=== PATIENT | female | born 1975 | race Two or more races ===

== ENCOUNTER → 2017-08-01 | Day surgery (SDC) | payer BC ==
[~2017-08-01] MED LIST: ARMOUR; ARTIFICIAL TEARS (OPTH) 15 ML BTL OU PRN; COLACE100 MG PO; DORYX150 MG PO; GLUCAGON FOR INJ 1 MG VIAL ONE; HEMOCYTE PLUS1 EACH PO; HYOSCYAMINE SULFATE 0.5 MG/ML AMP ONE; LEVAQUIN500 MG PO; LEVOTHYROXINE25 MCG PO; METFORMIN HCL500 MG PO; MIDAZOLAM HCL 2 MG/2 ML VIAL ONE; MULTIVITAMIN; PROPOFOL IV EMULSION 10 MG/ML 50 ML VIAL ONE; TYLENOL WITH C1 EACH PO; Z.0.LEVOXYL25 MCG PO; Z.0.SPIRONOLACTONE50 PO; ZOVIA PO
--- NOTE | 2017-08-01 15:23 | Operative Report ---
DATE OF PROCEDURE: August 01, 2017 COLONOSCOPY WITH POLYPECTOMY NOTE REFERRING PHYSICIAN: Dr. Christian Kaur. INDICATION FOR PROCEDURE: Colorectal cancer screening, constipation, iron deficiency anemia. MEDICATIONS: Patient was done under MAC. Please see anesthesiologist's note. PROCEDURE: With the patient in left lateral decubitus position, a flexible fiberoptic Olympus colonoscope was inserted into the rectum with ease and advanced all the way to the cecum. There was some retained fecal material in the colon, but visualization was fair. Mucosa overlying the cecum appeared to be within normal limits. Two polyps were hot biopsied from the ascending colon. The transverse colon appeared to be within normal limits. One polyp was snared from the descending colon and one polyp was hot biopsied from the sigmoid. There were some minimal scattered diverticular disease. The scope was then retroflexed into the distal rectum and moderate-sized internal hemorrhoids were noted, none of which was actively bleeding. The scope was then straightened out. The rectosigmoid area as well as the distal rectal area were decompressed. The scope was subsequently withdrawn. Patient tolerated the procedure well. IMPRESSION 1. Ascending colon polyps, hot biopsied times 2. 2. Descending colon polyp, snared times 1. 3. Diverticulosis, minimal. 4. Sigmoid colon polyp, hot biopsied. 5. Internal hemorrhoids, none actively bleeding. PLAN: Follow up histology. Initiate high-fiber, low-fat diet. Initiate high-fiber supplement. Start Linzess 145 mcg 1 p.o. q.a.m. a.c. Patient might benefit from a followup colonoscopy in 3 years. Job#: [id number] PAT cc:Christian Kaur MD
== END | disposition home or self-care (01) ==
LOC: OR 07:36
PROVIDERS: ATTEND Internal Medicine Gastroenterology
DX: K59.00 Constipation, unspecified (principal); D12.2 Benign neoplasm of ascending colon; D12.4 Benign neoplasm of descending colon; K57.30 Diverticulosis of large intestine without perforation or abscess without bleeding; K64.8 Other hemorrhoids; D50.9 Iron deficiency anemia, unspecified; E11.9 Type 2 diabetes mellitus without complications
CPT/HCPCS: 45384; 45385; J1610; J1980; J2250

== ENCOUNTER → 2017-12-26 | Outpatient (CLI) | payer BC ==
[~2017-12-26] MED LIST changes: -ARTIFICIAL TEARS (OPTH) 15 ML BTL OU PRN; -GLUCAGON FOR INJ 1 MG VIAL ONE; -HYOSCYAMINE SULFATE 0.5 MG/ML AMP ONE; -MIDAZOLAM HCL 2 MG/2 ML VIAL ONE; -PROPOFOL IV EMULSION 10 MG/ML 50 ML VIAL ONE
--- NOTE | 2017-12-26 12:59 | Diagnostic Imaging Report ---
PROCEDURE: CT CHEST WITHOUT CONTRAST CT scan of the chest WITHOUT intravenous contrast, using low dose protocol. TECHNIQUE: The chest was scanned utilizing a multidetector helical scanner from the apex to the level of the adrenal glands. No IV contrast was administered because of low-dose protocol. Coronal and sagittal multiplanar reformations were obtained. COMPARISON: CT abdomen and pelvis with contrast 05/17/2017, MRI of the abdomen with and without contrast 05/22/2017, screening mammography 02/23/2017. INDICATIONS: Patient reports "stretching" feeling in the left axilla. FINDINGS: Lines/tubes: None. Lungs and Airways: The lungs and airways are normal with no focal abnormality demonstrated. Pleura: The pleural spaces are clear. Heart and mediastinum: No hilar or mediastinal lymphadenopathy. Aortic arch and great vessel origins are normal in caliber and configuration. Pulmonary outflow tract is of normal caliber. The abdominal aorta is non-aneurysmal. There is no pericardial effusion. Soft tissues: Bilateral breast implants. There are a few morphologically normal, reniform lymph nodes in the bilateral axillae. No lymphadenopathy. Musculature of the visualized shoulder girdles is symmetric and unremarkable in appearance. No abnormal soft tissue mass or fluid collection. Abdomen: Visualized portions of the liver, gallbladder, spleen, pancreas, adrenals, and kidneys are unremarkable. Known hepatic hemangiomas are poorly visualized without intravenous contrast. Bones: No osseous destructive lesions. IMPRESSION: No imaging abnormality in the left axilla. Specifically, no chest wall or shoulder girdle mass lesion or axillary lymphadenopathy. Clear lungs. Findings were discussed in person with Mrs. Kaur upon completion of the examination. Dictated by: Paul Krause M.D. on 12/26/2017 at 13:01 Electronically approved by: Paul Krause M.D. on 12/26/2017 at 13:01
--- NOTE | 2017-12-26 15:49 | Diagnostic Imaging Report ---
EXAM: Thyroid Ultrasound INDICATION: Thyroid nodule. Follow-up. COMPARISON: 07/13/2014. TECHNIQUE: Transverse and sagittal images were obtained of the thyroid gland. FINDINGS: Thyroid gland: Size: Right lobe: 3.5 x 1.0 x 1.5 cm, Normal in size Left lobe: 4.3 x 0.7 x 1.5 cm, Normal in size Isthmus: 0.2 cm, Normal in size Appearance: Homogeneous echotexture without increased vascularity Masses/Nodules: Right lobe: None. Left lobe: 0.6 x 0.4 x 0.6 cm cystic (0 pts) nodule in the interpolar region with smooth margin (0 pts), [id number] (0 pts), anechoic (0 pts), and no calcifications (0 pts). Punctate echogenic focus along its wall. Previously it measured 0.3 x 0.3 x 0.4 cm. TR2, Not Suspicious: No FNA. Parathyroid: No focal parathyroid masses. IMPRESSION: Slight interval increase in size of a left thyroid lobe cyst. TR2, Not Suspicious: No FNA. No follow-up warranted. TI-RADS Lexicon: TR1, Benign: No FNA TR2, Not Suspicious: No FNA. TR3a (<1.5 cm): No follow-up. TR3b (1.5-2.5 cm), Mildly Suspicious: Follow at 1, 3, 5 years. TR3c (>2.5 cm), Mildly Suspicious: FNA. TR4a (<1.0 cm): No follow-up. TR4b (1.0-1.5 cm), Moderately Suspicious: Follow at 1, 2, 3, 5 years. TR4c (>1.5 cm), Moderately Suspicious: FNA. TR5a (<0.5 cm): No follow-up. TR5b (0.5-1.0 cm), Highly Suspicious: Follow at 1, 2, 3, 4, 5 years. TR5c (>1.0 cm), Highly Suspicious: FNA. *Rebiopsy if new suspicious features *No recommendation at this time for significant interval growth. Nodule Characteristics: * Benign features: cystic, hyperechoic, comet-tail artifact, complete halo * Minor suspicious features: solid, hypoechoic, other calcifications * Major suspicious features: microcalcifications, marked hypoechoic (less than strap muscle), suspicious lymph nodes, taller than wide, lobulated or ill-defined margins. Literature: ACR Thyroid Imaging, Reporting and Data System (TI-RADS): White Paper of the ACR TI-RADS Committee. J Am Ann Radiol 2017. Signed by: Dr. Naga Valdivia M.D. on 12/26/2017 3:45 PM
--- NOTE | 2017-12-26 15:50 | Diagnostic Imaging Report ---
EXAM: US EXTREMITY SPARROW NON-VAS INDICATION: LEFT AXILLARY MASS COMPARISON: None TECHNIQUE: Transverse and sagittal images were performed of the soft tissues of the left axillary region, with particular attention to the region of pain. FINDINGS: Evaluation of the soft tissues of the left axilla demonstrate no focal masses, or fluid collections. 2 similar oval structures measuring 2.3 x 0.4 x 1.2 cm and 1.0 x 0.3 x 0.7 cm suggestive of lymph nodes without worrisome features. IMPRESSION: 2 small, normal-appearing lymph nodes in the left axillary region. Signed by: Dr. Naga Valdivia M.D. on 12/26/2017 3:47 PM
== END ==
LOC: CT 11:02
PROVIDERS: ATTEND Internal Medicine Interventional Cardiology
DX: E04.1 Nontoxic single thyroid nodule (principal); R22.1 Localized swelling, mass and lump, neck; M79.89 Other specified soft tissue disorders
CPT/HCPCS: 71250; 76536; 76882

== ENCOUNTER → 2018-12-25 | Outpatient (CLI) | payer BC | LOC: MAMMO 13:37 | PROVIDERS: ATTEND Obstetrics & Gynecology | DX: Z12.31 Encounter for screening mammogram for malignant neoplasm of breast (principal) | CPT/HCPCS: 77067 ==

== ENCOUNTER → 2020-01-13 | Outpatient (CLI) | payer BC | LOC: MAMMO 08:20 | PROVIDERS: ATTEND Obstetrics & Gynecology | DX: Z12.31 Encounter for screening mammogram for malignant neoplasm of breast (principal) | CPT/HCPCS: 77067 ==

== ENCOUNTER → 2020-02-12 | Outpatient (CLI) | payer BC ==
--- NOTE | 2020-02-12 10:04 | Diagnostic Imaging Report ---
Ultrasound female pelvis Clinical diagnosis: Right pelvic Mass. History of hysterectomy and right salpingo-oophorectomy. Last menstrual period: Not applicable Comparison: No previous ultrasound Technique: Multiple transaxial and longitudinal images were obtained through the pelvis. Low MHz transducer(s) was(were) utilized transabdominally and endovaginally. Color Doppler and spectral waveform analysis images were submitted to evaluate for blood flow. Multiple images were submitted for interpretation. Report: Uterus: Surgically absent Right Ovary: Surgically absent Left Ovary: 1.6 x 2.2 x 1.5 cm seen only a transabdominal examination. No mass. Free Fluid: None Impression: Status post hysterectomy and right salpingo-oophorectomy. Left ovary has seen only on transabdominal exam appears unremarkable. Signed by: Ajit Hernandez MD on 02/12/2020 10:00 AM
== END ==
LOC: US 08:56
PROVIDERS: ATTEND Internal Medicine Interventional Cardiology
DX: R10.9 Unspecified abdominal pain (principal); R19.09 Other intra-abdominal and pelvic swelling, mass and lump
CPT/HCPCS: 76830; 76856

== ENCOUNTER → 2020-05-14 | Day surgery (SDC) | payer BC ==
[~2020-05-14] MED LIST changes: +ARTIFICIAL TEARS (OPTH) 15 ML BTL ONE; +ARTIFICIAL TEARS (OPTH) 15 ML BTL OU PRN; +FENTANYL CITRATE/PF 100MCG/2 ML INJ ONE; +GLUCAGON FOR INJ 1 MG VIAL ONE; +HYOSCYAMINE 0.125 MG TAB ONE; +LIDOCAINE HCL 2% LOCAL INJ 5 ML SDV VIAL INJ ONE; +LINZESS72 MCG; +MIDAZOLAM HCL 2 MG/2 ML VIAL ONE; +PROPOFOL IV EMULSION 10 MG/ML 20 ML VIAL ONE
[2020-05-14 09:10] VITALS: BP 111/74
--- NOTE | 2020-05-14 09:21 | Operative Report ---
DATE OF PROCEDURE: 05/14/2020 SURGEON: Fei Tavares MD PROCEDURE: Colonoscopy with polypectomy. INDICATIONS FOR COLONOSCOPY: Surveillance colonoscopy, personal history of colon polyps. MEDICATIONS: The patient was done under MAC, please see anesthesiologist's note. PROCEDURE IN DETAIL: With the patient was in left lateral decubitus position, flexible fiberoptic Olympus colonoscope was inserted into the rectum with ease and advanced all the way to the cecum. It was then withdrawn slowly. Mucosa overlying the cecum, ascending colon, transverse colon, descending colon appeared to be within normal limits. A minute polyp was cold biopsied from the sigmoid colon. The rectum appeared to be within normal limits. The scope was then retroflexed into the distal rectum and small internal hemorrhoids were noted, none of which was actively bleeding. The scope was then straightened out, it was subsequently withdrawn. The patient tolerated procedure well. IMPRESSION: 1. Sigmoid colon polyp, minute, cold, biopsied. 2. Internal hemorrhoids, none actively bleeding. PLAN: Follow up histology. Initiate high-fiber, low-fat diet. Initiate high-fiber supplement. The patient might benefit from a followup colonoscopy in 5 years. Fei Tavares MD [facility] [place] /[id number] cc: Christian Kaur MD
== END | disposition home or self-care (01) ==
LOC: OR 06:38
PROVIDERS: ATTEND Internal Medicine Gastroenterology
DX: Z09 Encounter for follow-up examination after completed treatment for conditions other than malignant neoplasm (principal); K63.5 Polyp of colon; K64.8 Other hemorrhoids; E11.9 Type 2 diabetes mellitus without complications; E03.9 Hypothyroidism, unspecified; Z91.048 Other nonmedicinal substance allergy status; Z01.812 Encounter for preprocedural laboratory examination; Z11.59 Encounter for screening for other viral diseases; Z79.84 Long term (current) use of oral hypoglycemic drugs
CPT/HCPCS: 45380; J1610; J2001; J2250; J2704; J3010; U0002; 45378; 45384

== ENCOUNTER 2020-06-24 20:57 | Emergency (ER) | payer BC ==
[~2020-06-24] VITALS: Ht 160 cm; Wt 67.1 kg
[~2020-06-24 20:57] MED LIST changes: -ARTIFICIAL TEARS (OPTH) 15 ML BTL ONE; -ARTIFICIAL TEARS (OPTH) 15 ML BTL OU PRN; -FENTANYL CITRATE/PF 100MCG/2 ML INJ ONE; -GLUCAGON FOR INJ 1 MG VIAL ONE; -HYOSCYAMINE 0.125 MG TAB ONE; -LIDOCAINE HCL 2% LOCAL INJ 5 ML SDV VIAL INJ ONE; -MIDAZOLAM HCL 2 MG/2 ML VIAL ONE; -PROPOFOL IV EMULSION 10 MG/ML 20 ML VIAL ONE
[2020-06-24] MEDS ORDERED: DIATRIZOATE MEGL/DIATRIZOA SOD 30 ML BTL PO ONE (21:25)
[2020-06-24 21:41] LABS: BASOPHILS # (AUTO) 0.1 (0.0-0.1); BASOPHILS % 0.9 % (0.0-1.0); EOSINOPHILS # (AUTO) 0.3 (0.0-0.4); HEMATOCRIT 43.3 % (34.2-44.1); HEMOGLOBIN 13.8 g/dL (12.0-16.0); LYMPHOCYTES # (AUTO) 2.3 (1.0-3.2); LYMPHOCYTES % 30.5 % (18.0-39.1); MEAN CORPUSCULAR HEMOGLOBIN 28.2 pg (28-32); MEAN CORPUSCULAR HGB CONC 31.9 g/dL (31-35); MEAN CORPUSCULAR VOLUME 88.4 fL (81-99); MONOCYTES # (AUTO) 0.4 (0.2-0.8); MONOCYTES % 5.7 % (4.4-11.3); NEUTROPHILS # (AUTO) 4.4 (2.1-6.9); NEUTROPHILS % 58.6 % (38.7-80.0); PLATELET COUNT 285 x10e3/uL (140-360); RED CELL DISTRIBUTION WIDTH 12.4 % (11.7-14.4)
[2020-06-24 21:58] LABS: AMYLASE 98 U/L (25-125); LIPASE 66 U/L (8-78)
[2020-06-24 22:03] LABS: ALANINE AMINOTRANSFERASE 10 IU/L (0-55); ALBUMIN/GLOBULIN RATIO 1.2 (0.8-2.0); ALKALINE PHOSPHATASE 66 IU/L (40-150); ANION GAP 13.1 mmol/L (8-16); BLOOD UREA NITROGEN 10 mg/dL (7-26); BUN/CREATININE RATIO 13 (6-25); CARBON DIOXIDE 27 mmol/L (22-29); CHLORIDE 104 mmol/L (98-107); CREATININE, SERUM 0.75 mg/dL (0.57-1.11); EST GLOMERULAR FILTRATION RATE > 60 ML/MIN (60-); GLUCOSE 97 mg/dL (74-118); POTASSIUM 4.1 mmol/L (3.5-5.1); SODIUM 140 mmol/L (136-145)
--- NOTE | 2020-06-24 22:10 | Emergency Department Note ---
History of Present Illnes History of Present Illness Chief Complaint: Abdominal Complaints History of Present Illness This is a 45 year old Other female PRESENTS TO ED WITH REPORT OF INTERMITTENT LLQ PAIN / LEFT FLANK PAIN; PT DENIES ANY BURNING WITH URINATION; . Historian: Patient, Family Member Arrival Mode: Car Onset (how long ago): hour(s) (12) Location: LLQ,LEFT FLANK Quality: PAIN Radiation: Reports non-radiation Severity: moderate Onset quality: sudden Duration (how long): hour(s) (12) Timing of current episode: constant Progression: waxing and waning Chronicity: new Context: Denies recent illness, Denies recent surgery Relieving factors: none Exacerbating factors: none Associated symptoms: Reports denies other symptoms Past Medical/Family History Physician Review I have reviewed the patient's past medical and family history. Any updates have been documented here. Past Medical History Recent Fever: No Clinical Suspicion of Infectio: No New/Unexplained Change in Ment: No Other Medical History: ADENOMYOSIS Past Surgical History: Hysterectomy Social History Smoking Cessation: Never Smoker Alcohol Use: None Any Illegal Drug Use: No Physically hurt or threatened: No Review of Systems Review of Systems Constitutional: Reports no symptoms EENTM: Reports no symptoms Cardiovascular: Reports no symptoms Respiratory: Reports no symptoms Gastrointestinal: Reports as per HPI Genitourinary: Reports no symptoms Musculoskeletal: Reports no symptoms Integumentary: Reports no symptoms Neurological: Reports no symptoms Psychological: Reports no symptoms Endocrine: Reports no symptoms Hematological/Lymphatic: Reports no symptoms Physical Exam Related Data Allergies: Uncoded Allergies: PLASTIC TAPE (Allergy, 04/30/12) Triage Vital Signs Vital Signs Date Time Temp Pulse Resp B/P (MAP) Pulse Ox O2 Delivery O2 Flow Rate FiO2 06/24/20 21:41 98.0 72 16 110/64 100 Room Air Vital signs reviewed: Yes Physical Exam CONSTITUTIONAL Constitutional: Present well-developed, Present well-nourished; Absent distressed HENT HENT: Present normocephalic, Present atraumatic, Present oropharynx clear/moist, Present nose normal HENT L/R: Present left ext ear normal, Present right ext ear normal EYES Eyes: Reports PERRL, Reports conjunctivae normal NECK Neck: Present ROM normal PULMONARY Pulmonary: Present effort normal, Present breath sounds normal CARDIOVASCULAR Cardiovascular: Present regular rhythm, Present heart sounds normal, Present capillary refill normal, Present normal rate GASTROINTESTINAL Abdominal: Present soft, Present nontender, Present bowel sounds normal, Present tender (MILD LLQ TENDERNESS); Absent left CVA tenderness, Absent right CVA tenderness GENITOURINARY Genitourinary: Present exam deferred SKIN Skin: Present warm, Present dry MUSCULOSKELETAL Musculoskeletal: Present ROM normal NEUROLOGICAL Neurological: Present alert, Present oriented x 3, Present no gross motor or sensory deficits PSYCHOLOGICAL Psychological: Present mood/affect normal, Present judgement normal Results Laboratory Result Diagram: 06/24/20212406/24/202124 Laboratory Laboratory Tests Test 06/24/20 22:40 06/24/20 21:25 Urine Color Yellow (YELLOW) Urine Clarity Clear (CLEAR) Urine pH 7.5 (5 - 7) Urine Specific [place] 1.015 (1.010-1.025) Urine Protein Negative (NEGATIVE) Urine Glucose (UA) Negative (NEGATIVE) Urine Ketones Negative (NEGATIVE) Urine Blood Negative (NEGATIVE) Urine Nitrite Negative (NEGATIVE) Urine Bilirubin Negative (NEGATIVE) Urine Urobilinogen 0.2 mg/dL (0.2 - 1) Urine Leukocyte Esterase Negative (NEGATIVE) Urine RBC 0-5 /HPF (0-5) Urine WBC 0-5 /HPF (0-5) Urine Epithelial Cells Few /LPF (NONE) Urine Bacteria Rare /HPF (NONE) White Blood Count 7.53 x10e3/uL (4.8-10.8) Red Blood Count 4.90 x10e6/uL (3.6-5.1) Hemoglobin 13.8 g/dL (12.0-16.0) Hematocrit 43.3 % (34.2-44.1) Mean Corpuscular Volume 88.4 fL (81-99) Mean Corpuscular Hemoglobin 28.2 pg (28-32) Mean Corpuscular Hemoglobin Concent 31.9 g/dL (31-35) Red Cell Distribution Width 12.4 % (11.7-14.4) Platelet Count 285 x10e3/uL (140-360) Neutrophils (%) (Auto) 58.6 % (38.7-80.0) Lymphocytes (%) (Auto) 30.5 % (18.0-39.1) Monocytes (%) (Auto) 5.7 % (4.4-11.3) Eosinophils (%) (Auto) 4.0 % (0.0-6.0) Basophils (%) (Auto) 0.9 % (0.0-1.0) Neutrophils # (Auto) 4.4 (2.1-6.9) Lymphocytes # (Auto) 2.3 (1.0-3.2) Monocytes # (Auto) 0.4 (0.2-0.8) Eosinophils # (Auto) 0.3 (0.0-0.4) Basophils # (Auto) 0.1 (0.0-0.1) Absolute Immature Granulocyte (auto 0.02 x10e3/uL (0-0.1) Sodium Level 140 mmol/L (136-145) Potassium Level 4.1 mmol/L (3.5-5.1) Chloride Level 104 mmol/L (98-107) Carbon Dioxide Level 27 mmol/L (22-29) Anion Gap 13.1 mmol/L (8-16) Blood Urea Nitrogen 10 mg/dL (7-26) Creatinine 0.75 mg/dL (0.57-1.11) Estimat Glomerular Filtration Rate > 60 ML/MIN (60-) BUN/Creatinine Ratio 13 (6-25) Glucose Level 97 mg/dL (74-118) Calcium Level 9.0 mg/dL (8.4-10.2) Total Bilirubin 0.4 mg/dL (0.2-1.2) Aspartate Amino Transf (AST/SGOT) 16 IU/L (5-34) Alanine Aminotransferase (ALT/SGPT) 10 IU/L (0-55) Alkaline Phosphatase 66 IU/L (40-150) Total Protein 7.3 g/dL (6.5-8.1) Albumin 4.0 g/dL (3.5-5.0) Globulin 3.3 g/dL (2.3-3.5) Albumin/Globulin Ratio 1.2 (0.8-2.0) Amylase Level 98 U/L (25-125) Lipase 66 U/L (8-78) Laboratory Tests Test 06/24/20 21:25 White Blood Count 7.53 x10e3/uL (4.8-10.8) Red Blood Count 4.90 x10e6/uL (3.6-5.1) Hemoglobin 13.8 g/dL (12.0-16.0) Hematocrit 43.3 % (34.2-44.1) Mean Corpuscular Volume 88.4 fL (81-99) Mean Corpuscular Hemoglobin 28.2 pg (28-32) Mean Corpuscular Hemoglobin Concent 31.9 g/dL (31-35) Red Cell Distribution Width 12.4 % (11.7-14.4) Platelet Count 285 x10e3/uL (140-360) Neutrophils (%) (Auto) 58.6 % (38.7-80.0) Lymphocytes (%) (Auto) 30.5 % (18.0-39.1) Monocytes (%) (Auto) 5.7 % (4.4-11.3) Eosinophils (%) (Auto) 4.0 % (0.0-6.0) Basophils (%) (Auto) 0.9 % (0.0-1.0) Neutrophils # (Auto) 4.4 (2.1-6.9) Lymphocytes # (Auto) 2.3 (1.0-3.2) Monocytes # (Auto) 0.4 (0.2-0.8) Eosinophils # (Auto) 0.3 (0.0-0.4) Basophils # (Auto) 0.1 (0.0-0.1) Absolute Immature Granulocyte (auto 0.02 x10e3/uL (0-0.1) Sodium Level 140 mmol/L (136-145) Potassium Level 4.1 mmol/L (3.5-5.1) Chloride Level 104 mmol/L (98-107) Carbon Dioxide Level 27 mmol/L (22-29) Anion Gap 13.1 mmol/L (8-16) Blood Urea Nitrogen 10 mg/dL (7-26) Creatinine 0.75 mg/dL (0.57-1.11) Estimat Glomerular Filtration Rate > 60 ML/MIN (60-) BUN/Creatinine Ratio 13 (6-25) Glucose Level 97 mg/dL (74-118) Calcium Level 9.0 mg/dL (8.4-10.2) Total Bilirubin 0.4 mg/dL (0.2-1.2) Aspartate Amino Transf (AST/SGOT) 16 IU/L (5-34) Alanine Aminotransferase (ALT/SGPT) 10 IU/L (0-55) Alkaline Phosphatase 66 IU/L (40-150) Total Protein 7.3 g/dL (6.5-8.1) Albumin 4.0 g/dL (3.5-5.0) Globulin 3.3 g/dL (2.3-3.5) Albumin/Globulin Ratio 1.2 (0.8-2.0) Amylase Level 98 U/L (25-125) Lipase 66 U/L (8-78) Lab results reviewed: Yes Imaging Imaging results reviewed: Yes Impressions Procedure: [id number] CT/CT ABDOMEN/PELVIS W Exam Date: 06/24/20 Exam Time: 0 REPORT STATUS: Signed EXAM: CT Abdomen and Pelvis WITH contrast INDICATION: LLQ PAIN COMPARISON: CT 05/17/2017 and MRI dated 05/21/2017. TECHNIQUE: Abdomen and pelvis were scanned utilizing a multidetector helical scanner from the lung base to the pubic symphysis after administration of IV contrast. Coronal and sagittal reformations were obtained. Routine protocol was performed. Scan was performed when during portal venous phase. IV CONTRAST: 100 mL of Isovue 370 ORAL CONTRAST: Yes COMPLICATIONS: None FINDINGS: LINES and TUBES: None. LOWER THORAX: Bilateral breast implants. HEPATOBILIARY: No biliary ductal dilation. Unchanged hepatic lesions, previously characterized as hemangiomas. GALLBLADDER: No radio-opaque stones or sludge. No wall thickening. SPLEEN: No splenomegaly. PANCREAS: No focal masses or ductal dilatation. ADRENALS: No adrenal nodules KIDNEYS/URETERS: Kidneys enhance symmetrically. No hydronephrosis. No cystic or solid mass lesions. No stones. GI TRACT: No abnormal distention, wall thickening, or evidence of bowel obstruction. Appendix is normal. PELVIC ORGANS/BLADDER: Status post hysterectomy. Right ovary is surgically absent. Left ovary is not definitely visualized. No adnexal masses. LYMPH NODES: No lymphadenopathy. VESSELS: Unremarkable. PERITONEUM / RETROPERITONEUM: No free air or fluid. BONES: Unremarkable. SOFT TISSUES: Unremarkable. IMPRESSION: No acute abdominopelvic process. Signed by: Callie Quispe MD on 06/24/2020 11:22 PM Dictated By: CALLIE QUISPE MD 21 Transcribed By: MAVRIN on 06/24/202321 COPY TO: KIRBY ZHAO MD~ Assessment & Plan Medical Decision Making MDM PT WITH LLQ PAIN CBC, CMP, UA, CT ABD/PELVIS ORDERED TO EVAL FOR UTI, DIVERTICULITIS, COLITIS, KIDNEY STONE, ELECTROLYTE ABNORMALITY, LEUKOCYTOSIS Assessment & Plan Final Impression: (1) Abdominal pain (2) Constipation Depart Disposition: HOME, SELF-CARE Last Vital Signs Date Time Temp Pulse Resp B/P (MAP) Pulse Ox O2 Delivery O2 Flow Rate FiO2 06/24/20 21:41 98.0 72 16 110/64 100 Room Air Home Meds Reported Medications Linaclotide (Linzess) 72 Mcg Capsule 05/10/20 Metformin Hcl (METFORMIN HCL) 500 Mg Tablet, 500 MG PO BID, #60 TAB 08/01/17 Levothyroxine Sodium (LEVOTHYROXINE SODIUM) 25 Mcg Tablet, 25 MCG PO DAILY 07/01/14 [ARMLD 5mcg] No Conflict Check, DAILY 04/30/12 Medications in the ED Diatrizoate Meglum/ Diatrizoate Sod 30 ml STK-MED ONCE PO ; Start 06/24/20 at 21:25; Stop 06/24/20 at 21:18; Status DC KIRBY ZHAO MD Jun 24, 2020 22:10
[2020-06-24 22:44] LABS: BILIRUBIN,URINE NEGATIVE (NEGATIVE); CLARITY,URINE CLEAR (CLEAR); COLOR,URINE YELLOW (YELLOW); KETONES,URINE NEGATIVE (NEGATIVE); LEUKOCYTE ESTERASE ,URINE NEGATIVE (NEGATIVE); NITRITE,URINE NEGATIVE (NEGATIVE); PROTEIN,URINE DIPSTICK NEGATIVE (NEGATIVE); URINE UROBILINOGEN 0.2 mg/dL (0.2 - 1)
[2020-06-24] MEDS ORDERED: IOPAMIDOL 370 MG/ML 200 ML INFUS..BTL INJ ONE (22:44)
[2020-06-24] MEDS ORDERED: SODIUM CHLORIDE 0.9% 50ML 50 ML ONE (22:45)
[2020-06-24 22:50] LABS: BACTERIA,URINE RARE /HPF; EPITHELIAL CELLS,URINE FEW /LPF; RBC,URINE 0-5 /HPF (0-5); WBC,URINE (MAN) 0-5 /HPF (0-5)
--- NOTE | 2020-06-24 23:26 | Diagnostic Imaging Report ---
EXAM: CT Abdomen and Pelvis WITH contrast INDICATION: LLQ PAIN COMPARISON: CT 05/17/2017 and MRI dated 05/21/2017. TECHNIQUE: Abdomen and pelvis were scanned utilizing a multidetector helical scanner from the lung base to the pubic symphysis after administration of IV contrast. Coronal and sagittal reformations were obtained. Routine protocol was performed. Scan was performed when during portal venous phase. IV CONTRAST: 100 mL of Isovue 370 ORAL CONTRAST: Yes COMPLICATIONS: None FINDINGS: LINES and TUBES: None. LOWER THORAX: Bilateral breast implants. HEPATOBILIARY: No biliary ductal dilation. Unchanged hepatic lesions, previously characterized as hemangiomas. GALLBLADDER: No radio-opaque stones or sludge. No wall thickening. SPLEEN: No splenomegaly. PANCREAS: No focal masses or ductal dilatation. ADRENALS: No adrenal nodules KIDNEYS/URETERS: Kidneys enhance symmetrically. No hydronephrosis. No cystic or solid mass lesions. No stones. GI TRACT: No abnormal distention, wall thickening, or evidence of bowel obstruction. Appendix is normal. PELVIC ORGANS/BLADDER: Status post hysterectomy. Right ovary is surgically absent. Left ovary is not definitely visualized. No adnexal masses. LYMPH NODES: No lymphadenopathy. VESSELS: Unremarkable. PERITONEUM / RETROPERITONEUM: No free air or fluid. BONES: Unremarkable. SOFT TISSUES: Unremarkable. IMPRESSION: No acute abdominopelvic process. Signed by: Ian Iniguez MD on 06/24/2020 11:22 PM
[2020-06-24 23:40] VITALS: BP 109/62
--- OUTSIDE RECORDS SUMMARY | 2020-06-26 09:52 | XMS REPORT | Continuity of Care Document ---
Author Author [facility] t Organization [facility] Address [address] [place] [address] Phone Unavailable Care Team Providers Care Back Tender Pulp Drier Name Role Phone MD MARVEL KAUR PCP Itz ZHAO Attphys Unavailable MARVEL KAUR Attphys Unavailable Aki LUIS Attphys Unavailable Payers Payer Name Policy Type Policy Number Effective Date [facility] Date [id number] 2009 00:00:00 [facility] Problems Condition Name Condition Details Condition Category Status Onset Date Resolution Date Last Treatment Date Treating Clinician Comments Source Abdominal pain Problem Active C [facility] Constipation Problem Active [facility] Allergies, Adverse Reactions, Alerts Allergy Name Allergy Type Status Severity Reaction(s) Onset Date Inacti ve Date Treating Clinician Comments Source 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 Ordering Clinician Indication Dosage Frequency Signature (SIG) Comments Components Source Avon 5MCG Avon 5MCG Yes Daily [facility] Levothyroxine Sodium Levothyroxine Sodium Yes 25 Daily [facility] Linaclotide (Linzess) 72 Mcg CAPSULE Linaclotide (Linzess) 72 Mcg C APSULE Yes [facility] Metformin Hcl Metformin Hcl Yes 500 Twice A Day [facility] Acetaminophen With Codeine (Tylenol With Codeine #3 Ta blet) 1 Each TABLET Acetaminophen With Codeine (Tylenol With Codeine #3 Tablet) 1 Each TABLET 2017-08-01 00:00:00 No 300 Every 4 Hours as nee ded for Pain [facility] Docusate Sodium (Colace) 100 Mg CAP Docusate Sodium (Colace) 100 Mg CAP 2017-08-01 00:00:00 No 100 Twice A Day [facility] Fe Fumarate/Fa/Mv, Min Comb#15 (Hemocyte Plus Capsule) 1 Each CAPSULE Fe Fumarate/Fa/Mv, Min Comb#15 (Hemocyte Plus Capsule) 1 Each CAPSULE 2017-08-01 00:00:00 No Daily [facility] Levofloxacin (Levaquin) 500 Mg TABLET Levofloxacin (Levaquin) 50 0 Mg TABLET 2017-08-01 00:00:00 No 500 Daily [facility] Levothyroxine Sodium (Levoxyl) 25 Mcg TABLET Levothyro xine Sodium (Levoxyl) 25 Mcg TABLET 2017-08-01 00:00:00 No 25 Daily [facility] Zovia Zovia 2017-08-01 00:00:00 No 50 Daily [facility] Doxycycline Hyclate (Doryx) 150 Mg TABLET.DR Valdivia ne Hyclate (Doryx) 150 Mg TABLET. 2014-06-30 00:00:00 No 150 [facility] Spironolactone Spironolactone 2014-06-30 00:00:00 No 50 Q2days [facility] Multivitamin Multivitamin 2013-03-07 00:00:00 No Daily [facility] Vital Signs Vital Name Observation Time Observation Value Comments Source Heart Rate 2020-06-24 23:40:00 70 /min [facility] Respiratory rate 2020-06-24 23:40:00 16 /min [facility] BP Systolic 2020-06-24 23:40:00 109 mm[Hg] [facility] BP Diastolic 2020-06-24 23:40:00 62 mm[Hg] [facility] Oxygen saturation by Pulse oximetry 2020-06-24 23:40:00 100 /min [facility] Weight 2020-06-24 21:41:00 148 [lb_av] [facility] BMI (Body Mass Index) 2020-06-24 21:41:00 26.2 kg/m2 [facility] Body Temperature 2020-05-14 09:34:00 97.8 [degF] [facility] Procedures Procedure Date / Time Performed Performing Clinician [facility] e Computed tomography of abdomen and pelvis with contrast 00:00:00 [facility] COLONOSCOPY AND BIOPSY 2020-05-14 00:00:00 [facility] Complete non-obstetrical ultrasound of pelvis 2020-02-12 00:00:0 0 [facility] US transvaginal 2020-02-12 00:00:00 [facility] Plan of Care Planned Activity Planned Date Details Comments Source Instructions Abdominal Pain - Adult [facility] Instructions Constipation - Adult [facility] Encounters Start Date/Time End Date/Time Encounter Type Admission Type Attendi [facility] Care Department Encounter ID Source 2020-06-24 21:30:00 2020-06-24 23:41:00 Departed Emergency Room 1 KIRBY ZHAO [facility] [id number] [facility] 2020-05-14 07:38:00 2020-05-14 07:38:00 Registered Surgical Day Care [facility] [id number] [facility] 2020-02-12 09:56:00 2020-02-12 09:56:00 Registered Clinic 3 MARVEL KAUR [facility] [id number] [facility] 2020-01-13 09:20:00 2020-01-13 09:20:00 Registered Clinic 3 HARPREET LUIS [facility] [id number] [facility] Results Test Description Test Time Test Comments Results Result Comments Source CT ABDOMEN/PELVIS W 2020-06-24 23:03:00 [facility] 1975 Sex: F [facility] [address] [address] Patient Name: TODD KAUR MR #: [id number] : 1975 Age/Sex: 45/F Req #: [id number] [facility] Physician: Ordered by: KIRBY ZHAO MD Report #: [id number] Location: ER Room/Bed: Procedure: [id number] CT/CT ABDOMEN/PELVIS W Exam Date: 06/24/20 Exam Time: 0 REPORT STATUS: Signed EXAM: CT Abdomen and Pelvis WITH contrast INDICATION: LLQ PAIN COMPARISON: CT 05/17/2017 and MRI dated 05/21/2017. TECHNIQUE: Abdomen and pelvis were scanned utilizing a multidetector helical scanner from the lung base to the pubic symphysis after administration of IV contrast. Coronal and sagittal reformations were obtained. Routine protocol was performed. Scan was performed when during portal venous phase. IV CONTRAST: 100 mL of Isovue 370 ORAL CONTRAST: Yes COMPLICATIONS: None FINDINGS: LINES and TUBES: None. LOWER THORAX: Bilateral breast implants. HEPATOBILIARY: No biliary ductal dilation. Unchanged hepatic lesions, previously characterized as hemangiomas. GALLBLADDER: No radio-opaque stones or sludge. No wall thickening. SPLEEN: No splenomegaly. PANCREAS: No focal masses or ductal dilatation. ADRENALS: No adrenal nodules KIDNEYS/URETERS: Kidneys enhance symmetrically. No hydronephrosis. No cystic or solid mass lesions. No stones. GI TRACT: No abnormal distention, wall thickening, or evidence of bowel obstruction. Appendix is normal. PELVIC ORGANS/BLADDER: Status post hysterectomy. Right ovary is surgically absent. Left ovary is not definitely visualized. No adnexal masses. LYMPH NODES: No lymphadenopathy. VESSELS: Unremarkable. PERITONEUM / RETROPERITONEUM: No free air or fluid. BONES: Unremarkable. SOFT TISSUES: Unremarkable. IMPRESSION: No acute abdominopelvic process. Signed by: Callie Iniguez MD on 06/24/2020 11:22 PM Dictated By: CALLIE INIGUEZ MD 21 Transcribed By: MARVIN on 06/24/202321 COPY TO: KIRBY ZHAO MD Urine color determination 2020-06-24 22:40:00 Test Item Urine Color (test code = 5778-6) YELLOW YELLOW [facility] [id number] 22:40:00* Test Item Value Reference Range Interpretation Comments Urine Clarity (test code = 42993-0) [facility] Test strip 2020-06-24 22:40:00* Test Item Value Reference Range Interpretation Comments Urine Specific [place] (test code = 5811-5) 1.015 1.010-1.02 5 [facility] pH measurement by automated test [id number] 22:40:00* Test Item Value Reference Range Interpretation Comments Urine pH (test code = 47400-8) 7.5 5-7 [facility]ale[facility]rine leukocyte esterase detection by epmgmzfd8796-31-25 22:40:00* Test Item Value Reference Range Interpretation Comments Urine Leukocyte Esterase (test code = 5799-2) NEGATIVE NEGATIVE [facility]ale[facility]rine nitrite ghfsjwbtg0490-76-79 22:40:00* Test Item Value Reference Range Interpretation Comments Urine Nitrite (test code = 08820-7) NEGATIVE NEGATIVE [facility]ale[facility] protein measurement by test strip (mass/volume)2020-06-24 22:40:00* Test Item Value Reference Range Interpretation Comments Urine Protein (test code = 5804-0) NEGATIVE NEGATIVE [facility]ale[facility]rine glucose ogytwhwbh3637-92-60 22:40:00* Test Item Value Reference Range Interpretation Comments Urine Glucose (UA) (test code = 2349-9) NEGATIVE NEGATIVE [facility]ale[facility]rine ketones detection by automated test gsraw9397-66-81 22:40:00* Test Item Value Reference Range Interpretation Comments Urine Ketones (test code = 03266-5) NEGATIVE NEGATIVE [facility]aleUrine urobilinogen measurement by test strip (mass/volume)2020-06-24 22:40:00* Test Item Value Reference Range Interpretation Comments Urine Urobilinogen (test code = 88718-7) 0.2 mg/dL 0.2-1 [facility]rine total bilirubin measurement (mass/volume)2020-06-24 22:40:00* Test Item Value Reference Range Interpretation Comments Urine Bilirubin (test code = 1978-6) NEGATIVE NEGATIVE [facility]ale[facility]rine erythrocytes sewdyfmhg0268-01-48 22:40:00* Test Item Value Reference Range Interpretation Comments Urine Blood (test code = 67416-7) NEGATIVE NEGATIVE [facility]aleAutomated urine sediment leukocyte count by microscopy (number/high power field)2020-06-24 22:40:00* Test Item Value Reference Range Interpretation Comments Urine WBC (test code = 5821-4) 0-5 /[HPF] 0-5 [facility]aleErythrocytes detection in urine sediment by light xatofsfzba8478-75-01 22:40:00* Test Item Value Reference Range Interpretation Comments Urine RBC (test code = 37318-4) 0-5 /[HPF] 0-5 [facility]aleBacteria detection in urine sediment by light nedczqulbj4779-08-34 22:40:00* Test Item Value Reference Range Interpretation Comments Urine Bacteria (test code = 78413-6) RARE /[HPF] NONE [facility]aleEpithelial cells detection in urine sediment by light qrajefrazg8900-17-16 22:40:00* Test Item Value Reference Range Interpretation Comments Urine Epithelial Cells (test code = 90151-7) FEW /[LPF] NONE [facility]aleBlood leukocytes automated count (number/volume)2020-06-24 21:25:00* Test Item Value Reference Range Interpretation Comments White Blood Count (test code = 6690-2) 7.53 10*3/uL 4.8-10.8 [facility]aleBlood erythrocytes automated count (number/volume)2020-06-24 21:25:00* Test Item Value Reference Range Interpretation Comments Red Blood Count (test code = 789-8) 4.90 10*6/mL 3.6-5.1 [facility]aleBlood hemoglobin measurement (moles/volume)2020-06-24 21:25:00* Test Item Value Reference Range Interpretation Comments Hemoglobin (test code = 73363-3) 13.8 g/dL 12.0-16.0 [facility]aleAutomated blood hematocrit (volume fraction)2020-06-24 21:25:00* Test Item Value Reference Range Interpretation Comments Hematocrit (test code = 4544-3) 43.3 % 34.2-44.1 [facility]valeAutomated erythrocyte mean corpuscular efsetr3588-57-72 21:25:00* Test Item Value Reference Range Interpretation Comments Mean Corpuscular Volume (test code = 787-2) 88.4 81-99 [facility]aleAutomated erythrocyte mean corpuscular hemoglobin (mass per erythrocyte)2020-06-24 21:25:00* Test Item Value Reference Range Interpretation Comments Mean Corpuscular Hemoglobin (test code = 785-6) 28.2 pg 28-32 [facility]aleAutomated erythrocyte mean corpuscular hemoglobin concentration measurement (mass/volume)2020-06-24 21:25:00* Test Item Value Reference Range Interpretation Comments Mean Corpuscular Hemoglobin Concent (test code = 786-4) 31.9 g/dL 31-35 [facility] SunnyvaleRDW MybUi-Sug3841-13-19 21:25:00* Test Item Value Reference Range Interpretation Comments Red Cell Distribution Width (test code = 50716-4) 12.4 % 11.7 -14.4 [facility]aleAutomated blood platelet count (count/volume)2020-06-24 21:25:00* Test Item Value Reference Range Interpretation Comments Platelet Count (test code = 777-3) 285 10*3/uL 140-360 [facility] SunnyvaleAutomated blood segmented neutrophil count as percentage of total krkuwwobhx9373-14-37 21:25:00* Test Item Value Reference Range Interpretation Comments Neutrophils (%) (Auto) (test code = 65856-8) 58.6 % 38.7-80.0 [facility]valeAutomated blood lymphocyte count as percentage ot total fxewhpxxti0584-66-17 21:25:00* Test Item Value Reference Range Interpretation Comments Lymphocytes (%) (Auto) (test code = 736-9) 30.5 % 18.0-39.1 [facility]aleAutomated blood monocyte count as percentage of total ncgdsdultu4785-94-31 21:25:00* Test Item Value Reference Range Interpretation Comments Monocytes (%) (Auto) (test code = 5905-5) 5.7 % 4.4-11.3 [facility]aleAutomated blood eosinophil count as percentage of total trwnepybvl5463-15-65 21:25:00* Test Item Value Reference Range Interpretation Comments Eosinophils (%) (Auto) (test code = 713-8) 4.0 % 0.0-6.0 [facility]aleAutomated blood basophil count as percentage of total vekszffcpt5256-13-87 21:25:00* Test Item Value Reference Range Interpretation Comments Basophils (%) (Auto) (test code = 706-2) 0.9 % 0.0-1.0 [facility] SunnyvaleFluoroscopic procedure less than one hour aeyjspew7638-29-31 21:25:00* Test Item Value Reference Range Interpretation Comments IM GRANULOCYTES % (test code = IM GRANULOCYTES %) 0.3 % 0.0- 1.0 [facility]valeAutomated blood neutrophil count 2020-06-24 21:25:00* Test Item Value Reference Range Interpretation Comments Neutrophils # (Auto) (test code = 751-8) 4.4 2.1-6.9 [facility]aleBlood lymphocytes count (number/volume) 2020-06-24 21:25:00* Test Item Value Reference Range Interpretation Comments Lymphocytes # (Auto) (test code = 86570-6) 2.3 1.0-3.2 [facility]aleBlfair[facility] monocytes automated count (number/volume)2020-06-24 21:25:00* Test Item Value Reference Range Interpretation Comments Monocytes # (Auto) (test code = 742-7) 0.4 0.2-0.8 [facility] SunnyvaleAutomated blood eosinophil count 2020-06-24 21:25:00* Test Item Value Reference Range Interpretation Comments Eosinophils # (Auto) (test code = 711-2) 0.3 0.0-0.4 [facility] SunnyvaleAutomated blood basophil count (count/volume)2020-06-24 21:25:00* Test Item Value Reference Range Interpretation Comments Basophils # (Auto) (test code = 704-7) 0.1 0.0-0.1 [facility] SunnyvaleFluoroscopic procedure less than one hour outatbds7938-53-81 21:25:00* Test Item Value Reference Range Interpretation Comments Absolute Immature Granulocyte (auto (shar t code = Absolute Immature Granulocyte (auto) 0.02 10*3/uL 0-0.1 [facility]ererum or plasma sodium measurement (moles/volume)2020-06-24 21:25:00* Test Item Value Reference Range Interpretation Comments Sodium Level (test code = 2951-2) 140 mmol/L 136-145 [facility]ererum or plasma potassium measurement (moles/volume)2020-06-24 21:25:00* Test Item Value Reference Range Interpretation Comments Potassium Level (test code = 2823-3) 4.1 mmol/L 3.5-5.1 [facility]ererum or plasma chloride measurement (moles/volume)2020-06-24 21:25:00* Test Item Value Reference Range Interpretation Comments Chloride Level (test code = 2075-0) 104 mmol/L 98-107 [facility]ererum or plasma carbon dioxide, total measurement (moles/volume)2020-06-24 21:25:00* Test Item Value Reference Range Interpretation Comments Carbon Dioxide Level (test code = 2028-9) 27 mmol/L 22- [facility]ererum or plasma anion lpf8880-36-54 21:25:00* Test Item Value Reference Range Interpretation Comments Anion Gap (test code = 66431-7) 13.1 mmol/L 8-16 [facility]ererum or plasma urea nitrogen measurement (mass/volume)2020-06-24 21:25:00* Test Item Value Reference Range Interpretation Comments Blood Urea Nitrogen (test code = 3094-0) 10 mg/dL 7- [facility]ererum or plasma creatinine measurement (mass/volume)2020-06-24 21:25:00* Test Item Value Reference Range Interpretation Comments Creatinine (test code = 2160-0) 0.75 mg/dL 0.57-1.11 [facility]ererum or plasma urea nitrogen/creatinine mass smlut7272-32-88 21:25:00* Test Item Value Reference Range Interpretation Comments BUN/Creatinine Ratio (test code = 3097-3) 13 - [facility] SunnyvaleEstimated glomerular filtration rate (GFR) igvgbehikurno5702-27-33 21:25:00* Test Item Value Reference Range Interpretation Comments Estimat Glomerular Filtration Rate (test code = 464504718) > 60 mL/ min >60 Ranges were taken from the National Kidney Disease Education Program and the [facility] Kid[facility] Foundation literature.Reference ranges:60 or greater: Onolfd64-73 ( for 3 consecutive months): Chronic kidney disease 15 or less: Kidney failureBaylor Scott & White Medical Center – SunnyvaleGlucose xcvowsaicop8648-76-43 21:25:00* Test Item Value Reference Range Interpretation Comments Glucose Level (test code = GZB9713) 97 mg/dL 74-118 [facility]ererum or plasma calcium measurement (mass/volume)2020-06-24 21:25:00* Test Item Value Reference Range Interpretation Comments Calcium Level (test code = 74580-3) 9.0 mg/dL 8.4-10.2 [facility]ererum or plasma total bilirubin measurement (mass/volume)2020-06-24 21:25:00* Test Item Value Reference Range Interpretation Comments Total Bilirubin (test code = 1975-2) 0.4 mg/dL 0.2-1.2 [facility] SunnyvaleFluoroscopic procedure less than one hour cmqoxryb3435-01-77 21:25:00* Test Item Value Reference Range Interpretation Comments Aspartate Amino Transf (AST/SGOT) (test code = Aspartate Amino Transf (AST/SGOT)) 16 [IU]/L 5-34 [facility] Centererum or plasma alanine aminotransferase measurement (enzymatic activity/volume)2020-06-24 21:25:00* Test Item Value Reference Range Interpretation Comments Alanine Aminotransferase (ALT/SGPT) (test code = 1742-6) 10 [IU]/L 0-55 [facility]ererum or plasma protein measurement (mass/volume)2020-06-24 21:25:00* Test Item Value Reference Range Interpretation Comments Total Protein (test code = 2885-2) 7.3 g/dL 6.5-8.1 [facility]ererum or plasma albumin measurement (mass/volume)2020-06-24 21:25:00* Test Item Value Reference Range Interpretation Comments Albumin (test code = 1751-7) 4.0 g/dL 3.5-5.0 [facility] SunnyvalePlasma globulin measurement (mass/volume) 2020-06-24 21:25:00* Test Item Value Reference Range Interpretation Comments Globulin (test code = 18605-6) 3.3 g/dL 2.3-3.5 [facility]ererum or plasma albumin/globulin mass doevh1309-54-98 21:25:00* Test Item Value Reference Range Interpretation Comments Albumin/Globulin Ratio (test code = 1759-0) 1.2 0.8-2.0 [facility]ererum or plasma alkaline phosphatase measurement (enzymatic activity/volume)2020-06-24 21:25:00* Test Item Value Reference Range Interpretation Comments Alkaline Phosphatase (test code = 6768-6) 66 [IU]/L 40-150 [facility]ererum or plasma amylase measurement (enzymatic activity/volume)2020-06-24 21:25:00* Test Item Value Reference Range Interpretation Comments Amylase Level (test code = 1798-8) 98 U/L 25-125 [facility]ererum or plasma lipase measurement (enzymatic activity/volume)2020-06-24 21:25:00* Test Item Value Reference Range Interpretation Comments Lipase (test code = 3040-3) 66 U/L 8-78 [facility] SunnyvaleFluoroscopic procedure less than one hour oopguqmf1438-76-57 12:26:00* Test Item Value Reference Range Interpretation Comments Coronavirus (PCR) (test code = Coronavirus (PCR)) NOT DETECTED NOTD ETECTED SARS-CoV-2 PCRHologic Aptima SARS-CoV-2 assay is a nucleic amplification test in tended for the qualitative detection of RNA from SARS-CoV-2 from nasopharyngeal (BRAZING MACHINE TENDER) specimens. It is used under Emergency Use Authorization (EUA) by FDA.A posi tive result is indicative of the presence of SARS-CoV-2 RNA. Clinical correlatio n with patient history and other diagnostic information is necessary to determin e patient infection status.A negative (Not Detected) result does not preclude SA RS-CoV-2 infection. Clinical Correlation with patient history and other diagnost ic information should be used in patient management decisions.Invalid: Unable to generate a valid result on this specimen. Please submit a new specimen for repr at testing oc clinically indicated.Tesing performed by:[facility] Services[address] [place] [address] [id number], Kirby sellers MD, PhDBaylor Scott & White Medical Center – SunnyvaleUS SEWKKOMBNEGO3367-79-08 09:55:[address] [address] Patient Name: TODD KAUR MR #: [id number] : 1975 Age/Sex: 45/F Req #: [id number] [facility] Physician: Ordered by: MARVEL KAUR MD Report #: [id number] Location: Room/Bed: Procedure: US/US TRANSVAGINAL Exam Date: 02/12/20 Exam Time: 937 REPORT STATUS: Signed Ultrasound female pelvis Clinical diagnosis: Right pelvic Mass. History of hysterectomy and right salpingo-oophorectomy. Last menstrual period: Not applicable Compariso n: No previous ultrasound Technique: Multiple transaxial and longitudinal i mages were obtained through the pelvis. Low MHz transducer(s) was(were) utili zed transabdominally and endovaginally. Color Doppler and spectral waveform a nalysis images were submitted to evaluate for blood flow. Multiple images wer e submitted for interpretation. Report: Uterus: Surgically absent Right Ovary: Surgically absent Left Ovary: 1.6 x 2.2 x 1.5 cm seen only a transabdominal examination. No mass. Free Fluid: None Impression: Status post hysterectomy and right salpingo-oophorectomy. Left ovary has seen only on transabdominal exam appears unremarkable. Signed by: Ajit Reyes MD on 02/12/2020 10:00 AM Dictated By: AJIT REYES MD 7 Transcribed By: MARVIN on 02/15 COPY TO: MARVEL KAUR MD PELVIS COMPLETE NON OB 2020-02-12 09:55:00 [address] [address] Patient Name: TODD KAUR MR #: [id number] : 1975 Age/Sex: 45/F Req #: [id number] Adm Physician: Ordered by: MARVEL KAUR MD Report #: [id number] Location: Room/Bed: Procedure: US/US PELVIS COMPL ETE NON OB Exam Date: 02/12/20 Exam Time: 937 REPORT STATUS: Signed Ultrasound fema le pelvis Clinical diagnosis: Right pelvic Mass. History of hysterectomy an d right salpingo-oophorectomy. Last menstrual period: Not applicable Comparison: No previous ultrasound Technique: Multiple transaxial and long itudinal images were obtained through the pelvis. Low MHz transducer(s) was(w ere) utilized transabdominally and endovaginally. Color Doppler and spectral waveform analysis images were submitted to evaluate for blood flow. Multiple images were submitted for interpretation. Report: Uterus: Surgically absent Right Ovary: Surgically absent Left Ovary: 1.6 x 2.2 x 1.5 cm seen only a transabdominal examination. No mass. Free Fluid: None Impr ession: Status post hysterectomy and right salpingo-oophorectomy. Left ovary h as seen only on transabdominal exam appears unremarkable. Signed by: Robina Reyes MD on 02/12/2020 10:00 AM Dictated By: AJIT REYES MD Elect ronically Signed By: AJIT REYES MD on 02/16/20847 Transcribed By: AMEE Wade on 02/16/20847 COPY TO: MARVEL KAUR MD MAMMOGRAPHY DIGITAL SCR [id number] 09:12:00 [place] [address] Patient Name: TODD KAUR MR #: [id number] : 1975 Age/Sex: 45/F Req #: [id number] Adm Physician: Ordered by: HARPREET LUIS Report #: [id number] Location: MAMMO Room/Bed: Procedure: MG/MAMMOGRAPHY DIGITAL SCR BILAT Exam Date: 01/13/20 Exam Time: REPORT STATUS: Signed #[id number] - MGSCRBIL #BILATERAL DIGITAL SCREENING MAMMOGRAM WITH CAD: 0 CLINICAL: Routine screening. Comparison is made to exams dated: 12/25 mammogram, 02/23/2017 mammogram and 11/15/2015 mammogram - [facility]. The tissue of both breasts is extremely dense, which l owers the sensitivity of mammography. Current study was also evaluated with a Computer Aided Detection (CAD) system. There are benign calcifications in both breasts. There also is a biopsy clip in the right breast. Bilateral germain ast implants are stable. No significant masses, calcifications, or other fin dings are seen in either breast. There has been no significant interval camarena ge. IMPRESSION: BENIGN There is no mammographic evidence of malignancy. A 1 year screening mammogram is recommended. The patient will be notified by letter of the results. NAKUL perla/ho:01/23/2020 09:53:57 Hair Specialist: Angelica CHANG(R)(M), [facility] letter sent: Compared to Prior B9 Mammogram BI-RADS: 2 Benign Dictated By: NAKUL FARIA MD 2 COPY TO: HARPREET ALEXANDER MAMMOGRAPHY DIGITAL SCR [id number] 13:51:00 [place] [address] Patient Name: TODD KAUR MR #: [id number] : 1975 Age/Sex: 43/F Req #: [id number] Adm Physician: Ordered by: HARPREET LUIS Report #: [id number] Location: MAMMO Room/Bed: Procedure: [id number] MG/ MAMMOGRAPHY DIGITAL SCR BILAT Exam Date: 12/25/18 Ex am Time: 1346 REPORT STATUS: Signed #[id number] - MGSCRBIL #BILATERAL DIGITAL SCREENING MAMMOGRAM WITH C AD: 12/25/2018 CLINICAL: Routine screening. Comparison is made to exams dated: 02/23/2017 mammogram and 11/15/2015 mammogram - [facility]. The tissue of both breasts is extremely dense, which lowers the sensitivity of mammography. Current study was also evaluated with a Compute r Aided Detection (CAD) system. Bilateral subpectoral saline implants are pr esent. No significant masses, calcifications, or other findings are seen in either breast. IMPRESSION: BENIGN There is no mammographic evidence of malignancy. A 1 year screening mammogram is recommended. The patient will be notified by letter of the results. ARLENE OSORIO M.D., mc/ ho:01/01/2019 11:39:13 Hair Specialist: Angelica CHANG(Laureen)(Enedina), [facility] letter sent: Normal Exam Mammogram BI-R ADS: 2 Benign Dictated By: HERON OSORIO MD 1139 Transcribed By: HO on 01/01/19 1139 COPY TO: HARPREET LUIS US EXTREMITY SPARROW NON-VAS [place] [address] Patient Name: TODD KAUR MR #: [id number] : 1975 Age/Sex: 42/F Req #: [id number] Adm Physician: Ordered by: MARVEL KAUR MD Report #: [id number] Location: PR Room/Bed: Procedure: [id number] US/US EXTREMITY SPARROW NON-VAS Exam Date: Exam Time: REPORT STATUS: Signed EXA M: US EXTREMITY SPARROW NON-VAS INDICATION: LEFT AXILLARY MASS COMPARISON: No ne TECHNIQUE: Transverse and sagittal images were performed of the soft tissue s of the left axillary region, with particular attention to the region of pain . FINDINGS: Evaluation of the soft tissues of the left axilla demonstrat e no focal masses, or fluid collections. 2 similar oval structures measuring 2 .3 x 0.4 x 1.2 cm and 1.0 x 0.3 x 0.7 cm suggestive of lymph nodes without wor risome features. IMPRESSION: 2 small, normal-appearing lymph nodes i n the left axillary region. Signed by: Dr. Naga Mak M.D. on 3:47 PM Dictated By: HEMAL MAK MD, MD 1547 Transcribed By: MARVIN on 12/26/17 1 547 COPY TO: MARVEL KAUR MD THYROID [place] [address] Patient Name: TODD KAUR MR #: [id number] : 1975 Age/Sex: 42/F [facility] #: [id number] [facility] Physician: Ordered by: MARVEL KAUR MD Report #: [id number] Location: PR Room/Bed: Procedure: [id number] US/US THYROID Exam Date: Exam Time: REPORT STATUS: Signed EXAM: Thyroid Ult rasound INDICATION: Thyroid nodule. Follow-up. COMPARISON: 07/13/2014. T ECHNIQUE: Transverse and sagittal images were obtained of the thyroid gland. FINDINGS: Thyroid gland: Size: Right lobe: 3.5 x 1.0 x 1.5 cm, Norm al in size Left lobe: 4.3 x 0.7 x 1.5 cm, Normal in size Isthmus: 0.2 cm, Normal in size Appearance: Homogeneous echotexture without increased vascular ity Masses/Nodules: Right lobe: None. Left lobe: 0.6 x 0.4 x 0. 6 cm cystic (0 pts) nodule in the interpolar region with smooth margin (0 pts) , [id number] (0 pts), anechoic (0 pts), and no calcifications (0 pts). Pu nctate echogenic focus along its wall. Previously it measured 0.3 x 0.3 x 0.4 cm. TR2, Not Suspicious: No FNA. Parathyroid: No focal parathyroid masses. IMPRESSION: Slight interval increase in size of a left t hyroid lobe cyst. TR2, Not Suspicious: No FNA. No follow-up warranted. TI -RADS Lexicon: TR1, Benign: No FNA TR2, Not Suspicious: No FNA. TR3a (<1.5 cm): No follow-up. TR3b (1.5-2.5 cm), Mildly Suspicious: Follow at 1, 3, 5 years. TR3c (>2.5 cm), Mildly Suspicious: FNA. TR4a (<1.0 cm): No follow-up. TR4b (1.0-1.5 cm), Moderately Suspicious: Follow at 1, 2, 3, 5 years. TR4c (>1.5 cm), Moderately Suspicious: FNA. TR5a (<0.5 cm): No follow-up. TR5b (0.5-1.0 cm), Highly Suspicious: Follow at 1, 2, 3, 4, 5 years. TR5c (>1.0 cm), Highly Suspicious: FNA. *Rebiopsy if new suspicious features *No r ecommendation at this time for significant interval growth. Nodule Shivani cteristics: * Benign features: cystic, hyperechoic, comet-tail artifact, comp lete halo * Minor suspicious features: solid, hypoechoic, other calcification s * Major suspicious features: microcalcifications, marked hypoechoic (less t corado strap muscle), suspicious lymph nodes, taller than wide, lobulated or il l-defined margins. Literature: ACR Thyroid Imaging, Reporting and Data S ystem (TI-RADS): White Paper of the ACR TI-RADS Committee. J Am Ann Radiol 20 17. Signed by: Dr. Naga Mak M.D. on 12/26/2017 3:45 PM Dictated By: HEMAL MAK MD, MD 1540 Transcribed By: MARVIN on 12/26/17 1549 COPY TO: MARVEL KAUR MD CT CHEST WO [place] [address] Patient Name: TODD KAUR MR #: [id number] : 1975 Age/Sex: 42/F Req #: [id number] Adm Physician: Ordered by: MARVEL KAUR MD Report #: [id number] Location: CT Room/Bed: Procedure: [id number] CT/CT CHEST WO Exam Date: 8 Exam Time: 1220 REPORT STATUS: Signed PROC EDURE: CT CHEST WITHOUT CONTRAST CT scan of the chest WITHOUT intravenous cont rast, using low dose protocol. TECHNIQUE: The chest was scanned utili [employer] a multidetector helical scanner from the apex to the level of the adrena l glands. No IV contrast was administered because of low-dose protocol. Olivia nal and sagittal multiplanar reformations were obtained. COMPARISON: CT abdomen and pelvis with contrast 05/17/2017, MRI of the abdomen with and wit hout contrast 05/22/2017, screening mammography 02/23/2017. INDICATIONS: Patient reports "stretching" feeling in the left axilla. FINDINGS: Lines/tubes: None. Lungs and Airways: The lungs and airways are normal w ith no focal abnormality demonstrated. Pleura: The pleural spaces are clear. Heart and mediastinum: No hilar or mediastinal lymphadenopathy. Aor tic arch and great vessel origins are normal in caliber and configuration. Pulmonary outflow tract is of normal caliber. The abdominal aorta is non-ane urysmal. There is no pericardial effusion. Soft tissues: Bilateral breast implants. There are a few morphologically normal, reniform lymph nodes in the bilateral axillae. No lymphadenopathy. Musculature of the visualized shoulde r girdles is symmetric and unremarkable in appearance. No abnormal soft tissu e mass or fluid collection. Abdomen: Visualized portions of the liver, gallbladder, spleen, pancreas, adrenals, and kidneys are unremarkable. Known hepatic hemangiomas are poorly visualized without intravenous contrast. Bones: No osseous destructive lesions. IMPRESSION: No imaging abno rmality in the left axilla. Specifically, no chest wall or shoulder girdle ma ss lesion or axillary lymphadenopathy. Clear lungs. Findings were di scussed in person with Mrs. Kaur upon completion of the examination. Dictated by: Jayne Krause M.D. on 12/26/2017 at 13:01 Electronically appr lee by: Jayne Krause M.D. on 12/26/2017 at 13:01 Dictated By: MARY KRAUSE MD [address]01 [address] scribed By: RAQUEL on 12/26/17 1301 COPY TO: MARVEL KAUR MD MRI ABDOMEN WOW [place] [address] Patient Name: TODD KAUR MR #: [id number] : 1975 Age/Sex: 42/F Req #: [id number] Adm Physician: Ordered by: MARVEL KAUR MD Report #: [id number] Location: MRI Room/Bed: Procedure: [id number] MRI/MRI ABDOMEN WOW Exam Date: Exam Time: 1205 REPORT STATUS: Signed PROCEDURE: MRI ABDOMEN WOW TECHNIQUE: MR abdomen without and with contra st. Axial diffusion-weighted sequences, dual echo, T2 fat-sat. The coronal SS FSE and 2-D fiesta. Post contrast dynamic sequences. COMPARISON: CT ab domen and pelvis 05/17/2017 INDICATIONS: Liver lesions. FINDINGS: LIVER: No hepatic signal abnormality. Multiple mildly T2 hyperintense lesion s throughout the liver that demonstrates progressive filling and consistent w ith hemangiomas. 2.1 cm segment 2 (series 11 image 50), 0.8 cm and 1.5 cm in segment 7 (image 51), 1.5 cm in segment 8 (image 52), 2 cm in segment 7 (imag e 56), and 1.1 cm in segment 4B (image 59). BILIARY: No ductal dilatation or filling defect. PANCREAS: No mass or ductal dilatation. SPLEEN: No spleno megaly. ADRENALS: No nodules. KIDNEYS: No hydronephrosis or mass in the imaged portion of the kidneys. PERITONEUM / RETROPERITONEUM: No upper a bdominal free fluid. LYMPH NODES: No upper abdominal lymphadenopathy. VESSEL S: Unremarkable. BONES AND SOFT TISSUES: Unremarkable. IMPRESSION: Multiple hepatic hemangiomas. Dictated by: Ted Gutierrez M.D. on 05/22/2017 at 14:31 Electronically approved by: Ted Gutierrez M.D. on 05/06 at 14:31 Dictated By: TED GUTIERREZ MD 143 Transcribed By: RAQUEL on 05/22/17 1431 COPY TO: MARVEL KAUR MD CT ABDOMEN/PELVIS W [place] [address] Patient Name: TODD KAUR MR #: [id number] : 1975 Age/Sex: 42/F Req #: [id number] Adm Physician: Ordered by: MARVEL KAUR MD Report #: [id number] Location: CT Room/Bed: Procedure: [id number] CT/CT ABDOMEN/PELVIS W Exam Date: 05/17/17 Exam Time: 1355 REPORT STATUS: Signed PROCEDURE: CT ABDOMEN AND PELVIS WITH CONTRAST TECHNIQUE: The abdom en and pelvis were scanned utilizing a multidetector helical scanner from the diaphragm to the lesser trochanter after the IV administration of 100 cc of Isovue 370 and the oral administration of dilute Gastrografin. Coronal and s agittal multiplanar reformations were obtained. COMPARISON: None. INDICATIONS: Hx RIGHT OVARIAN DERMOID TUMOR REMOVAL, LEFT SIDE ABDOMINAL PA IN FINDINGS: LOWER THORAX: Lung bases are clear. Bilateral breast implan ts are partially visualized. HEPATOBILIARY: Normal hepatic size and con tour. Several ill-defined hypodense lesions are noted in the liver, as follow s: * 1.2 x 1.4 cm lesion in hepatic segment VII (series 2 image 12). * Adjac ent 0.6 x 0.6 cm lesion in hepatic segment VII (series 2, image 12). * 1.2 x 1.2 cm hypodense lesion in hepatic segment VIII/1 7 (series 2, image 13) ar ea. * 1.6 x 1.8 cm hypodense lesion in hepatic segment VII (series 2 image 16). * 1.1 x 1.1 cm hypodense lesion in hepatic segment V (series 2, image 20). None of the larger lesions measure simple fluid. 1.7 x 1.1 cm hypodense lesion in hepatic segment II (series 2, image 12, and coronal image 26) has peripheral nodular enhancement and probably represents a small hemangioma. No other enhancing lesions are identified. No biliary ductal dilation. Gallbla dder is unremarkable. SPLEEN: No splenomegaly. PANCREAS: No focal masses or ductal dilatation. Prominence of the anterior aspect of the pancreatic head ( series 2 image 31), which remains well defined, with identical enhancement to the rest of the pancreatic parenchyma and most likely represents a normal va riant. ADRENALS: No adrenal nodules. KIDNEYS/URETERS: No hydronephrosis, stones, or solid mass lesions. PELVIC ORGANS/BLADDER: Bladder is unremarkable . Uterus is absent. 2.5 x 2.6 cm fluid density lesion in the left ovary (seri es 2, image 61). No mural nodules or septations. The right ovary is not ident ified. Several pelvic phleboliths are noted. An oval-shaped 0.8 cm calcifi cation posterior to the symphysis pubis is indeterminate and likely benign. PERITONEUM / RETROPERITONEUM: No free air or fluid. LYMPH NODES: No lymph adenopathy. VESSELS: Celiac trunk, superior and inferior mesenteric, and bilat eral renal arteries are patent. Portal, superior mesenteric, and splenic v eins are patent. GI TRACT: No bowel dilation or evidence of obstruction. N o pericolonic inflammatory changes. The appendix is identified, and normal in caliber (coronal image 46). 0.9 x 1.7 x 0.7 cm oval-shaped intraluminal fa t containing lesion in the jejunum (series 2 image 27 and sagittal image 81) BONES AND SOFT TISSUES: No acute bony abnormalities. No lytic lesions. IMPRESSION: 1. No acute abdominopelvic abnormalities. Specifically, no acute abnormal findings in the left upper quadrant/left abdomen to explain the patient's pain. 2. Several hypodense lesions in the right hepatic lobe, w hich do not measure simple fluid and remain indeterminate. Recommend contrast enhanced MRI abdomen with liver mass protocol for further evaluation. 3. A 1.7 cm hypodense lesion in hepatic segment II may represent a small hemangio ma. This lesion can also be evaluated with above mentioned MRI. 4. 2.6 cm s imple follicular cyst in the left ovary. 5. 1.7 cm intraluminal lipoma in the jejunum. Layton Gillespie M.D. Dictated by: Latyon houston M.D. on 05/17/2017 at 14:25 Electronically approved by: Layton del castillo M.D. on 05/17/2017 at 16:38 Dictated By: LAYTON GILLESPIE MD 1638 Transcribed B y: RAQUEL on 05/17/171637 COPY TO: MARVEL KAUR MD
--- OUTSIDE RECORDS SUMMARY | 2020-06-26 09:52 | XMS REPORT | Continuity of Care Document ---
Author Author [facility] Organization [employer] Address Unknown Phone Unavailable Care Team Providers Care Safety Person Name Role Phone [facility] [employer] Unavailable Un available Problems No Data Provided for This Section Medications No Data Provided for This Section Allergies, Adverse Reactions, Alerts No Known Medication Allergies Immunizations No Data Provided for This Section Results No Data Provided for This Section Pathology Reports No Data Provided for This Section Diagnostic Reports No Data Provided for This Section Consultation Notes No Data Provided for This Section Discharge Summaries No Data Provided for This Section History and Physicals No Data Provided for This Section Vital Signs No Data Provided for This Section Encounters Location Location Details Encounter Type Encounter Number Reason For Visit Attending Provider ADM Date DC Date Status Source Outpatient [id number] DARSHAN CABRERA 06/02/2017 Active [facility] Procedures No Data Provided for This Section Assessment and Plan No Data Provided for This Section Plan of Care No Data Provided for This Section Social History No Data Provided for This Section Family History No Data Provided for This Section Advance Directives No Data Provided for This Section Functional Status No Data Provided for This Section
== END 2020-06-24 23:41 | disposition home or self-care (01) ==
LOC: ER 21:30
DX: R10.32 Left lower quadrant pain (principal); K59.00 Constipation, unspecified; N80.0 Endometriosis of uterus
CPT/HCPCS: 36415; 74177; 80053; 81001; 82150; 83690; 85025; 99284; Q9967

== ENCOUNTER → 2020-12-30 | Outpatient (CLI) | payer OTHER | LOC: LAB 19:12 | DX: Z23 Encounter for immunization (principal); Z20.822 Contact with and (suspected) exposure to COVID-19 | CPT/HCPCS: U0002 ==

== ENCOUNTER → 2022-05-12 | Outpatient (CLI) | payer BC | LOC: US 12:38 | PROVIDERS: ATTEND Internal Medicine Interventional Cardiology | DX: D39.12 Neoplasm of uncertain behavior of left ovary (principal) | CPT/HCPCS: 76830; 76856 ==

== ENCOUNTER → 2024-05-19 | Day surgery (SDC) | payer OTHER ==
[2024-05-14 12:50] LABS: BASOPHILS % 0.5 % (0.0-1.0); EOSINOPHILS # (AUTO) 0.1 (0.0-0.4); EOSINOPHILS % 1.8 % (0.0-6.0); HEMATOCRIT 45.8 % (34.2-44.1); HEMOGLOBIN 13.5 g/dL (12.0-16.0); LYMPHOCYTES # (AUTO) 1.8 (1.0-3.2); LYMPHOCYTES % 23.9 % (18.0-39.1); MEAN CORPUSCULAR HEMOGLOBIN 28.1 pg (28-32); MEAN CORPUSCULAR HGB CONC 29.5 g/dL (31-35); MEAN CORPUSCULAR VOLUME 95.4 fL (81-99); MONOCYTES # (AUTO) 0.4 (0.2-0.8); MONOCYTES % 5.8 % (4.4-11.3); NEUTROPHILS # (AUTO) 5.1 (2.1-6.9); NEUTROPHILS % 67.7 % (38.7-80.0); PLATELET COUNT 237 x10e3/uL (140-360); RED CELL DISTRIBUTION WIDTH 12.9 % (11.7-14.4)
[2024-05-14 13:16] LABS: ALBUMIN 3.9 g/dL (3.5-5.0); ALBUMIN/GLOBULIN RATIO 1.2 (0.8-2.0); ANION GAP 14.3 mmol/L (8-16); BILIRUBIN,TOTAL 0.4 mg/dL (0.2-1.2); CALCIUM 9.7 mg/dL (8.4-10.2); CREATININE, SERUM 0.87 mg/dL (0.57-1.11); TOTAL PROTEIN 7.1 g/dL (6.5-8.1)
[2024-05-14 13:21] LABS: POTASSIUM 5.3 mmol/L (3.5-5.1)
[~2024-05-19] MED LIST changes: +BUPIVACAINE 0.25% 30ML SDV ONE; +BUPIVACAINE LIPOSOME/PF 266 MG/20 ML IJ ONE; +D3-5000125 MCG; +DEXAMETHASONE SOD PHOS 10 MG/1 ML VIAL ONE; +DEXAMETHASONE SOD PHOS INJ 4 MG/ML SDV ONE; +EPINEPHRINE HCL 1:1000 1ML 1 MG/ML AMP ONE; +FENTANYL CITRATE/PF 100MCG/2 ML INJ ONE; +FISH OIL 1,0001 EAC7; +K2-D3 10,000 U1 EACH; +KETOROLAC TROMETHAMINE 30 MG/ML VIAL ONE; +LIDOCAINE HCL 2% LOCAL INJ 5 ML SDV VIAL INJ ONE; +MAGNESIUM GLUCO27 MG; +MIDAZOLAM HCL 2 MG/2 ML VIAL ONE; +ONDANSETRON HCL INJ 2MG/ML 2ML 2 MG/ML VIAL ONE; +PROGESTERONE200 MG; +PROPOFOL IV EMULSION 10 MG/ML 20 ML VIAL ONE; +ROCURONIUM BROMIDE 10 MG/ML 5ML VIAL IV ONE; +SEVOFLURANE INHAL SOLN 250 ML PEN BTL ONE; +SILICA; +TESTOSTERONE PELLETS; +TUMERIC; +[UNRECOGNIZED DRUG - OTHER]
[2024-05-19] MEDS: LACTATED RINGER'S 1,000 ML ONE (07:24)
[2024-05-19 10:06] VITALS: TEMP 97.4
[2024-05-19 11:35] VITALS: BP 107/78; PULSE 65; RESP 16; O2SAT 98
== END | disposition home or self-care (01) ==
LOC: OR 06:37
PROVIDERS: ATTEND Surgery
DX: N83.02 Follicular cyst of left ovary (principal); N80.9 Endometriosis, unspecified; E28.2 Polycystic ovarian syndrome; E03.9 Hypothyroidism, unspecified; Z91.048 Other nonmedicinal substance allergy status; Z90.710 Acquired absence of both cervix and uterus; Z88.6 Allergy status to analgesic agent; Z79.84 Long term (current) use of oral hypoglycemic drugs; Z79.899 Other long term (current) drug therapy
CPT/HCPCS: 36415; 58661; 80053; 85025; 88305; 93005; J0171; J1100 ×2; J1885; J2003; J2250; J2405; J2704; J3010; J7121; 88304